=== PATIENT | male | born 1950 | race Hispanic/Latino ===

== ENCOUNTER 2016-11-13 21:02 | Emergency (ER) | payer MEDICARE, BC, OTHER ==
[2016-11-13 21:06] VITALS: BMI 28.8
[2016-11-13] MEDS ORDERED: Glucagon Recombinant 1 mg Inj IV STA (21:12)
--- NOTE | 2016-11-13 21:28 | ED PDOC ---
Arrival/HPI - General Chief Complaint: ENT Problem Time Seen by Provider: 11/13/16 21:04 Historian: Patient - History of Present Illness Narrative History of Present Illness (Text): 11/13/16 21:22 Blanco Hernandez is a 66 year old male, with a history of hypertension, presents to the emergency department for evaluation of food bolus impaction while eating a hot dog 30 minutes prior to arrival. Patient states that he feels like the food is stuck in his lower throat, but denies any difficulty breathing. Patient's attempted the Heimlich maneuver, but was unable to dislodge the food. Reports he is unable to swallow saliva and fluids. Denies any fever, chills or any other complaints at this time. Time/Duration: 1/2 hour Symptom Onset: Sudden Symptom Course: Unchanged Severity Level: Moderate Activities at Onset: Light Context: Home Past Medical History - Provider Review Nursing Documentation Reviewed: Yes - Infectious Disease Hx of Infectious Diseases: None - Cardiac Hx Hypertension: Yes - Psychiatric Hx Substance Use: No - Surgical History Hx Appendectomy: Yes - Anesthesia Hx Anesthesia: Yes Family/Social History - Physician Review Nursing Documentation Reviewed: Yes Family/Social History: No Known Family HX Smoking Status: Never Smoked Hx Alcohol Use: No Hx Substance Use: No Allergies/Home Meds Allergies/Adverse Reactions: Allergies No Known Allergies Allergy (Verified 11/13/16 21:08) Home Medications: Home Meds Medication Instructions Recorded Confirmed Olmesartan/Hydrochlorothiazide 1 tab PO DAILY 11/13/16 11/13/16 [Benicar Hct 40-12.5 mg Tablet] Review of Systems - Physician Review All systems were reviewed & negative as marked: Yes - Review of Systems Constitutional: Normal. absent: Fatigue, Fevers ENT: Other (choking sensation) Respiratory: Normal. absent: SOB, Cough, Sputum Cardiovascular: Normal. absent: Chest Pain, Palpitations Gastrointestinal: absent: Abdominal Pain, Nausea, Vomiting Physical Exam Vital Signs Reviewed: Yes Vital Signs Temp Pulse Resp BP Pulse Ox 11/13/16 21:33 99.3 F 107 H 18 126/77 99 Temperature: Afebrile Blood Pressure: Normal Pulse: Tachycardic Respiratory Rate: Normal Appearance: Positive for: Uncomfortable (with choking sensation) Pain Distress: None Mental Status: Positive for: Alert and Oriented X 3 - Systems Exam Head: Present: Atraumatic, Normocephalic Conjunctiva: Present: Normal Mouth: Present: Moist Mucous Membranes Pharnyx: Present: Normal. No: ERYTHEMA, EXUDATE, TONSILS ENLARGED Neurological: Present: GCS=15, CN II-XII Intact, Speech Normal, Motor Func Grossly Intact, Normal Sensory Function Skin: Present: Warm, Dry, Normal Color. No: Rashes Psychiatric: Present: Alert, Oriented x 3, Normal Insight, Normal Concentration Medical Decision Making ED Course and Treatment: 11/13/16 21:30 Impression: A 66 year old male who presents to the emergency department for evaluation of choking on piece of hotdog. Heimlich attempted unsuccessfully in the ED. No airway concerns. Differential Diagnosis include but are not limited to: esophageal food bolus impaction. Plan: -- Glucagon -- Reglan -- Reassess and disposition Progress Notes: 11/13/16 21:45 Patient with noted history. No relief with Heimlich or glucagon/reglan. Case discussed with Dr. Sandoval, who will come in for an EGD. 11/13/16 22:20 Patient suddenly is saying that he is feeling better and no longer has the esophageal foreign body sensation. He is able to swallow liquids without any difficulty and appears much more comfortable. 11/13/16 22:[address] Sandoval, who will hold on the EGD at this time. The emergent endoscopy is no longer indicated as the patient is feeling much better. He will be d/c and recommended to follow up with GI for outpatient EGD , as he has never had one before. - Medication Orders Current Medication Orders: Discontinued Medications Glucagon (Glucagen Diagnostic Kit) 2 mg IV STAT STA Stop: 11/13/16 21:13 Last Admin: 11/13/16 21:30 Dose: 2 mg Metoclopramide HCl (Reglan) 10 mg IVP STAT STA Stop: 11/13/16 21:14 Last Admin: 11/13/16 21:30 Dose: 10 mg - Scribe Statement The provider has reviewed the documentation as recorded by the Gen Mei Provider Attestation: All medical record entries made by the Gen were at my direction and personally dictated by me. I have reviewed the chart and agree that the record accurately reflects my personal performance of the history, physical exam, medical decision making, and the department course for this patient. I have also personally directed, reviewed, and agree with the discharge instructions and disposition. Disposition/Present on Arrival - Present on Arrival Any Indicators Present on Arrival: No History of DVT/PE: No History of Uncontrolled Diabetes: No Urinary Catheter: No History of Decub. Ulcer: No History Surgical Site Infection Following: None - Disposition Have Diagnosis and Disposition been Completed?: Yes Diagnosis: Food impaction of esophagus Disposition: HOME/ ROUTINE Disposition Time: 22:20 Patient Plan: Discharge Condition: GOOD Discharge Instructions (ExitCare): Esophageal Foreign Body (ED) Additional Instructions: Drink plenty of fluids. Follow up with gastroenterology and your primary care doctor. Return to the emergency department if any new concerning symptoms. Referrals: Vu Sandoval MD [Staff Provider] - Follow up with primary Juan Phillips MD [Family Provider] - Follow up with primary
[2016-11-13 22:27] VITALS: BP 148/86; TEMP 98.5
[2016-11-13 22:29] VITALS: PULSE 100
[2016-11-13 22:38] VITALS: RESP 18; O2SAT 99
== END 2016-11-13 22:38 | disposition home or self-care (01) ==
LOC: ED 21:02
DX: R09.89 Other specified symptoms and signs involving the circulatory and respiratory systems (principal)
CPT/HCPCS: 96374; 99283; J1610; J2765